=== PATIENT | male | born 1960 | race Caucasian/White ===

== ENCOUNTER 2020-08-24 11:00 | Emergency (ER) | payer SELFPAY ==
[2020-08-24 12:15] LABS: #Eosinphils 0.1 10x3/uL (0.0-0.5); #Monocytes 0.6 10x3/uL (0.0-1.1); #Neutrophils 4.6 10x3/uL (1.5-8.4); %Basophils 0.3 % (0.0-2.0); %Eosinophils 1.4 % (0.0-6.0); %Lymphocytes 18.6 % (18.0-47.0); %Monocytes 8.9 % (0.0-10.0); %Neutrophils 70.3 % (40.0-75.0); Hemoglobin 16.2 g/dL (13.5-17.5); Mean Corpuscular HGB CONC 30.7 g/dL (32.0-36.0); Mean Corpuscular Hemoglobin 24.4 pg (27.0-33.0); Mean Corpuscular Volume 79.5 fl (81.2-95.1); Platelet Count 223 10x3/uL (150-450); RBC Distribution Width 17.6 % (11.5-14.5); Red Blood Cell (RBC) Count 6.64 10x6/uL (4.32-5.72); White Blood Cell (WBC) Count 6.5 10x3/uL (3.5-10.5)
[2020-08-24 12:38] LABS: ALT (SGPT) 33 U/L (8-55); AST (SGOT) 21 U/L (5-34); Albumin 4.7 g/dL (3.4-4.8); Alkaline Phosphatase 47 U/L (40-110); Anion Gap 13 mmol/L (10-20); BUN (Urea Nitrogen) 18 mg/dL (8.4-25.7); Bilirubin, Total 0.7 mg/dL (0.2-1.2); CK (CPK) 109 U/L (30-200); Calc. Creatinine Clearance 0 mL/min (70-130); Calcium 9.7 mg/dL (7.8-10.44); Carbon Dioxide 28 mmol/L (23-31); Chloride 101 mmol/L (98-107); Glucose 111 mg/dL (80-115); Potassium 4.9 mmol/L (3.5-5.1); Protein, Total 7.7 g/dL (5.8-8.1); Sodium 137 mmol/L (136-145)
[2020-08-24] MEDS ORDERED: EPINEPHrine 1 MG/ML AMP ONE (13:30)
[2020-08-24 13:51] LABS: SARS-CoV-2 NAA Rapid Test Not Detected (NotDetected)
[2020-08-24] MEDS ORDERED: Midazolam HCl 2 mg/2 ml Vial ONE ×2 (14:18→14:22)
[2020-08-24] MEDS ORDERED: Fentanyl 100 MCG/2 ML VIAL ONE (14:22)
[2020-08-24] MEDS ORDERED: Glycopyrrolate 0.2 MG/ML 5 ML SYRINGE ONE (14:22)
[2020-08-24] MEDS ORDERED: Lidocaine 1% PF 5 ML VIAL ONE (14:22)
[2020-08-24] MEDS ORDERED: Dexamethasone 20 MG/5 ML VIAL ONE (14:22)
[2020-08-24] MEDS ORDERED: PROPOFOL 20 ML ONE (14:22)
[2020-08-24] MEDS ORDERED: Rocuronium Bromide 10 MG/ML (10ML VIAL) ONE (14:22)
[2020-08-24] MEDS ORDERED: Ondansetron PF 4 MG/2 ML Vial ONE (14:22)
[2020-08-24] MEDS ORDERED: PHENYLEPHRINE-NS 100 MCG/ML 10 ML SYRINGE ONE (15:01)
[2020-08-24] MEDS ORDERED: SUGAMMADEX SODIUM 500 MG/5 ML VIAL ONE (15:09)
[2020-08-24] MEDS ORDERED: ePHEDrine 50 MG/ML VIAL ONE (15:14)
[2020-08-24] MEDS ORDERED: Morphine 2 MG/ML VIAL ONE (16:03)
== END 2020-08-24 14:05 | disposition admitted as inpatient to this hospital (09) ==
LOC: CSHERS 11:00
DX: R22.1 Localized swelling, mass and lump, neck (principal); K21.9 Gastro-esophageal reflux disease without esophagitis; I10 Essential (primary) hypertension; Z20.822 Contact with and (suspected) exposure to COVID-19; Z79.899 Other long term (current) drug therapy
CPT/HCPCS: 71045; 80053; 82550; 84443; 84484; 85025; 88305; 88341; 88342; 93005; J0171; J1100; J2250; J2270; J2405; J2704; J3010; J3490; U0002

== ENCOUNTER 2020-10-01 10:03 | Outpatient (CLI) | payer BC ==
[2020-10-01 16:44] LABS: SARS-CoV-2 PCR by NAA Not Detected (NotDetected)
== END 2020-10-01 10:04 | disposition home or self-care (01) ==
LOC: CSHLAB 10:03
PROVIDERS: ATTEND Otolaryngology Plastic Surgery within the Head & Neck
DX: Z01.818 Encounter for other preprocedural examination (principal); Z20.822 Contact with and (suspected) exposure to COVID-19; C01 Malignant neoplasm of base of tongue; R94.31 Abnormal electrocardiogram [ECG] [EKG]
CPT/HCPCS: 70491; 82565; 87635; 93005; 93010; U0003; U0005

== ENCOUNTER 2020-10-05 07:59 | Day surgery (SDC) | payer BC ==
[2020-10-02 08:52] VITALS: BMI 29.8
[2020-10-05] MEDS ORDERED: Lidocaine 1% MPF 2 ML VIAL ONE (08:21)
[2020-10-05] MEDS ORDERED: Mupirocin 2% Ointment 22 GM Tube ONE (09:48)
[2020-10-05] MEDS ORDERED: EPINEPHrine 1 MG/ML AMP ONE (09:48)
[2020-10-05] MEDS ORDERED: Silver Nitrate Application 1 EACH ONE (09:49)
[2020-10-05] MEDS ORDERED: Midazolam HCl 2 mg/2 ml Vial ONE ×2 (10:02→10:05)
[2020-10-05] MEDS ORDERED: Fentanyl 100 MCG/2 ML VIAL ONE (10:05)
[2020-10-05] MEDS ORDERED: Rocuronium Bromide 10 MG/ML (10ML VIAL) ONE (10:05)
[2020-10-05] MEDS ORDERED: PROPOFOL 20 ML ONE (10:05)
[2020-10-05] MEDS ORDERED: Glycopyrrolate 0.2 MG/ML 5 ML SYRINGE ONE (10:05)
[2020-10-05] MEDS ORDERED: Ondansetron PF 4 MG/2 ML Vial ONE (10:05)
[2020-10-05] MEDS ORDERED: Dexamethasone 20 MG/5 ML VIAL ONE (10:05)
[2020-10-05] MEDS ORDERED: Lidocaine 1% PF 5 ML VIAL ONE (10:05)
[2020-10-05] MEDS ORDERED: PHENYLEPHRINE-NS 100 MCG/ML 10 ML SYRINGE ONE (10:22)
[2020-10-05] MEDS ORDERED: ePHEDrine 50 MG/ML VIAL ONE (10:43)
[2020-10-05] MEDS ORDERED: Ketorolac Tromethamine 15 MG/ML VIAL ONE (10:45)
[2020-10-05] MEDS ORDERED: Calcium Chloride 1 GM/10 ML Abboject SYRINGE ONE (10:47)
[2020-10-05] MEDS ORDERED: SUGAMMADEX SODIUM 500 MG/5 ML VIAL ONE (10:53)
== END 2020-10-05 12:40 | disposition home or self-care (01) ==
LOC: CSHSDC 07:59
PROVIDERS: ATTEND Otolaryngology Plastic Surgery within the Head & Neck
PROC: 0CBM8ZX Excision of Pharynx, Via Natural or Artificial Opening Endoscopic, Diagnostic (ICD-10-PCS; principal; 2020-10-05)
DX: C01 Malignant neoplasm of base of tongue (principal); Z79.899 Other long term (current) drug therapy
CPT/HCPCS: 88305; 88331; 88341; 88342; J0171; J1100; J1885; J2250; J2405; J2704; J3010; J3490